=== PATIENT | male | born 1960 | race Caucasian/White ===

== ENCOUNTER → 2016-09-10 | Outpatient (CLI) | payer OTHER ==
[~2016-09-10] MED LIST: FLUC100T41 PO; MORP1INJ45 PO; ZOVI200C24 PO
[2016-09-10 12:57] LABS: HEMATOCRIT 44.8 % (39.0-51.0); MEAN CELL VOLUME 103.9 FL (80.0-100.0); MEAN CORPUSCULAR HGB CONC 33.7 % (32.0-36.0); PLATELET COUNT 222 TH/MM3 (150-450); RED BLOOD COUNT 4.31 MIL/MM3 (4.50-5.90); RED CELL DISTRIBUTION WIDTH 11.4 % (11.6-17.2); REVIEW FLAG FINAL; WHITE BLOOD COUNT 5.1 TH/MM3 (4.0-11.0)
[2016-09-10 13:06] LABS: CHLORIDE 101 MEQ/L (98-107); POTASSIUM 3.7 MEQ/L (3.5-5.1); SODIUM (NA) 139 MEQ/L (136-145)
[2016-09-10 13:10] LABS: ANION GAP 8 MEQ/L (5-15); BICARBONATE 29.7 MEQ/L (21.0-32.0); BLOOD UREA NITROGEN 7 MG/DL (7-18)
[2016-09-10 13:13] LABS: ALT (GPT) 42 U/L (12-78); AST (GOT) 29 U/L (15-37); GLOMERULAR FILTRATION RATE 63 ML/MIN (>89)
[2016-09-10 13:14] LABS: TOTAL BILIRUBIN ADULT 0.8 MG/DL (0.2-1.0)
[2016-09-10 13:16] LABS: ALKALINE PHOSPHATASE 72 U/L (45-117)
[2016-09-12 23:52] LABS: CD 19 PERCENT 18 % (6-29); CD3 ABSOLUTE 1066 (840-3060); CD4/CD8 RATIO 1.5 (0.86-5.00); CD8 ABSOLUTE 418 (180-1170); LYMPHOCYTES, ABSOLUTE 1411 (850-3900)
[2016-09-14 17:51] LABS: HIV 1 PROVIRAL DNA Detected (Not Detected)
== END ==
LOC: PLAB 12:19
PROVIDERS: ATTEND Specialist
DX: B20 Human immunodeficiency virus [HIV] disease (principal); E29.1 Testicular hypofunction; R79.9 Abnormal finding of blood chemistry, unspecified; F51.05 Insomnia due to other mental disorder; F50.00 Anorexia nervosa, unspecified; F31.5 Bipolar disorder, current episode depressed, severe, with psychotic features; Z79.899 Other long term (current) drug therapy; Z20.2 Contact with and (suspected) exposure to infections with a predominantly sexual mode of transmission
CPT/HCPCS: 80053; 84443; 85027; 86355; 86357; 86359; 86360; 87535

== ENCOUNTER → 2016-11-09 | Outpatient (CLI) | payer OTHER ==
[~2016-11-09] MED LIST changes: +ASPI81TA11 PO; +CITA10TA4 PO; +DARU1TAB2 PO; +EMTR1TAB4 PO; +GADOBENATE DIM PF 529 MG/ML 5 ML VIAL (for RAD MRI) IV ONE; +METO50TA11 PO; +MIRTA15 PO; +ROSU1TAB4 PO; +THERTAB53 PO; +VALA1TAB PO; +VENL75CA44 PO
--- NOTE | 2016-11-09 11:15 | RADRPT ---
EXAM DATE/TIME: 11/09/2016 09:05 [facility] COMPARISON: MRI ORBITS W & W/O CONTRAST, March 07, 2014, 14:37. INDICATIONS : Altered mental status. Loss of memory. CONTRAST: 15 cc Multihance (gadobenate) IV MEDICAL HISTORY : Hypertension. SURGICAL HISTORY : None. ENCOUNTER: Subsequent ACUITY: 2 months PAIN SCORE: 0/10 LOCATION: Cranial TECHNIQUE: Multiplanar, multisequence MRI of the brain was performed both prior to and following the administrat ion of paramagnetic contrast. FINDINGS: Ventricular size is appropriate. There is no parenchymal hemorrhage, acute infarction, mass lesion. There are no extraaxial fluid collections appreciated. There are no significant periventricular white matter changes. There is no restricted diffusion. Posterior fossa fourth ventricle is midline. There is no abnormal contrast enhancement. There is minimal artifact across both occipital lobes seen best on series 13, image 9. This is not c ontrast enhancement. CONCLUSION: 1. Negative MRI of the brain. I do not see abnormal contrast enhancement. 2. I do not see evidence for cerebritis or ischemic demyelinization. Alli Adams MD FACR on November 09, 2016 at 10:37 Board Certified Radiologist. This report was verified electronically.
== END ==
LOC: HRAD 08:19
PROVIDERS: ATTEND Specialist
DX: R41.3 Other amnesia (principal); R41.0 Disorientation, unspecified; R41.82 Altered mental status, unspecified
CPT/HCPCS: 70553; A9577

== ENCOUNTER 2016-11-16 06:41 | Day surgery (SDC) | payer OTHER ==
[~2016-11-16] VITALS: Ht 175.3 cm; Wt 77.3 kg
[~2016-11-16 06:41] MED LIST changes: -ASPI81TA11 PO; -CITA10TA4 PO; -DARU1TAB2 PO; -EMTR1TAB4 PO; -GADOBENATE DIM PF 529 MG/ML 5 ML VIAL (for RAD MRI) IV ONE; -METO50TA11 PO; -MIRTA15 PO; -ROSU1TAB4 PO; -THERTAB53 PO; -VALA1TAB PO; -VENL75CA44 PO
[2016-11-16] MEDS ORDERED: EMTR1TAB4 PO (07:08)
[2016-11-16] MEDS ORDERED: ASPI81TA11 PO (07:08)
[2016-11-16] MEDS ORDERED: VENL75CA44 PO (07:08)
[2016-11-16] MEDS ORDERED: CITA10TA4 PO (07:08)
[2016-11-16] MEDS ORDERED: THERTAB53 PO (07:08)
[2016-11-16] MEDS ORDERED: DARU1TAB2 PO (07:08)
[2016-11-16] MEDS ORDERED: METO50TA11 PO (07:08)
[2016-11-16] MEDS ORDERED: MIRTA15 PO (07:08)
[2016-11-16] MEDS ORDERED: ROSU1TAB4 PO (07:08)
[2016-11-16] MEDS ORDERED: VALA1TAB PO (07:08)
[2016-11-16 07:16] VITALS: BP 113/76; PULSE 56; RESP 19; TEMP 97.8; O2SAT 97
[2016-11-16] MEDS ORDERED: SODIUM CHLOR 0.9% 1000 ML INJ 1,000 ML IV ONE (07:30)
[2016-11-16 07:34] LABS: AUTOMATED NEUTROPHIL # 4.2 TH/MM3 (1.8-7.7); BASOPHIL % 0.5 % (0.0-2.0); EOSINOPHIL # 0.1 TH/MM3 (0-0.4); EOSINOPHIL % 1.5 % (0.0-4.0); HEMATOCRIT 44.5 % (39.0-51.0); HEMO FLAGS DIFF FINAL; LYMPH % 27.9 % (9.0-44.0); LYMPHOCYTE # 1.9 TH/MM3 (1.0-4.8); MEAN CORPUSCULAR HEMOGLOBIN 34.3 PG (27.0-34.0); MEAN CORPUSCULAR HGB CONC 34.3 % (32.0-36.0); MONO % 7.3 % (0.0-8.0); NEUT % 62.8 % (16.0-70.0); PLATELET COUNT 171 TH/MM3 (150-450); RED BLOOD COUNT 4.45 MIL/MM3 (4.50-5.90); RED CELL DISTRIBUTION WIDTH 12.9 % (11.6-17.2); WHITE BLOOD COUNT 6.7 TH/MM3 (4.0-11.0)
[2016-11-16 07:44] LABS: APTT (PATIENT) 28.5 SEC (24.3-30.1); INTERNATIONAL NORMALIZED RATIO 0.9 RATIO
[2016-11-16 07:49] LABS: BICARBONATE 25.4 MEQ/L (21.0-32.0); POTASSIUM 4.1 MEQ/L (3.5-5.1)
--- NOTE | 2016-11-16 08:48 | PD.RAD ---
Post Procedure Progress Note Pre Procedure Diagnosis: (1) HIV (human immunodeficiency virus infection) Post Procedure Diagnosis: (1) HIV (human immunodeficiency virus infection) Procedure Date: Nov 16, 2016 Supervising Radiologist: Que Brewer JR Proceduralist/Assist: Jassi Shepard RT(R), RT John(R)(CV) Anesthesia: Local Plan of Activity Patient to Unit: ROPU Patient Condition: Good See PACS Report for procedural detail/treatment Spinal Procedure Lumbar Puncture L3-L4 Fluid Removal (CCs): 9 Fluid Description: Clear Puncture Time: 08:19 Jr. Osman,Que Pérez MD Nov 16, 2016 08:48
[2016-11-16 09:00] VITALS: BP 122/70; PULSE 56; RESP 17; TEMP 98.2; O2SAT 96
--- NOTE | 2016-11-16 09:00 | RADRPT ---
EXAM DATE/TIME: 11/16/2016 08:03 [facility] COMPARISON: No previous studies available for comparison. INDICATIONS : Memory loss. Hx of HIV MEDICAL HISTORY : 1. HIV 2. Anxiety 3. depression SURGICAL HISTORY : 1.lasik ENCOUNTER: Initial ACUITY: 4-6 months PAIN SCORE: 0/10 LUMBAR PUNCTURE TIME: 0819 hours FLUORO TIME: 0.5 minutes IMAGE SERIES: 0 ACCESS LEVEL: L3-4 FLUID: 9 cc of clear CSF was collected and sent to the laboratory for analysis. PROCEDURE : 1. Fluoroscopic guided lumbar puncture. The risks, benefits and alternatives to the procedure were explained and verbal and written consent w as obtained. The site was prepped in sterile fashion. Full sterile technique was used, including ca p, mask, sterile gloves and gown and a large sterile sheet. Hand hygiene and 2% chlorhexidine and/or betadine/alcohol prep was utilized per protocol for cutaneous antisepsis. The skin and subcutaneous tissues were infiltrated with local anesthetic solution. With fluoroscopic guidance the lumbar thecal sac was punctured at the level above. The fluid describ ed above was removed without difficulty. The patient tolerated the procedure well and there were no complications. CONCLUSION: Uncomplicated fluoroscopically guided lumbar puncture. Clear CSF obtained and sent to the lab as requested. Que Brewer Jr., MD on November 16, 2016 at 8:58 Board Certified Radiologist. This report was verified electronically.
[2016-11-16 10:11] LABS: GROSS BLOOD TUBE #1 0 (0); GROSS BLOOD TUBE #2 0 (0); SUPERNATE COLOR TUBE #1 CLEAR (CLEAR); SUPERNATE COLOR TUBE #2 CLEAR (CLEAR); VOLUME TUBE # 1 2.1 ML
[2016-11-16 10:12] LABS: CSF LYMPHOCYTES 100 %; CSF NEUTROPHILS 0 %; GROSS BLOOD TUBE #3 0 (0); GROSS BLOOD TUBE #4 0 (0); SUPERNATE COLOR TUBE #3 CLEAR (CLEAR); SUPERNATE COLOR TUBE #4 CLEAR (CLEAR); WBC TUBE #4 4 /MM3 (0-10)
[2016-11-16 10:30] VITALS: BP 130/72; PULSE 62; RESP 18; TEMP 98; O2SAT 98
[2016-11-17 09:21] LABS: HSV 1,PCR Negative (Negative)
[2016-11-17 09:54] LABS: CMV PCR SPECIMEN SOURCE CSF (())
[2016-11-17 18:04] LABS: LYME IGG IMMUNOBLOT CSF None Detected bands (None Detected); LYME IGM IMMUNOBLOT CSF None Detected bands (None Detected)
[2016-11-18 19:52] LABS: B. BURGDORFERI DNA PCR CSF NOT DETECTED (()); VDRL CSF NON-REACTIVE (())
[2016-11-19 08:41] LABS: CSF CRYPTOCOCCUS AG CONF ND (NOT DETECTD)
[2016-11-19 18:30] LABS: TOXOPLASMA AB IGG <0.90 (()); TOXOPLASMA AB IGM (CSF) <0.80 (())
== END 2016-11-16 10:35 | disposition home or self-care (01) ==
LOC: HROP 06:41 → HRIP 06:42 → HROP 10:35
PROVIDERS: ATTEND Specialist
DX: R41.82 Altered mental status, unspecified (principal); Z21 Asymptomatic human immunodeficiency virus [HIV] infection status; R41.3 Other amnesia
CPT/HCPCS: 62270; 77003; 80048; 82945; 84157; 85025; 85610; 85730; 86403; 86592; 86618; 86777; 86778; 87015; 87070; 87102; 87116; 87205; 87206; 87497; 87529; 87799; 87801; 89051; J7030

== ENCOUNTER 2016-11-18 12:43 | Day surgery (SDC) | payer OTHER ==
[~2016-11-18] VITALS: Ht 175.3 cm; Wt 77.3 kg
[2016-11-18 13:06] VITALS: BP 126/74; PULSE 78; RESP 20; TEMP 98.6; O2SAT 95
[2016-11-18 14:10] VITALS: BP 144/88; PULSE 67; RESP 20; O2SAT 98
--- NOTE | 2016-11-18 14:56 | PD.RAD ---
Radiology Post PICC Prog Note Pre Procedure Diagnosis: (1) HIV (human immunodeficiency virus infection) Post Procedure Diagnosis: (1) HIV (human immunodeficiency virus infection) Procedure: Left PICC line placement Procedure Date: Nov 18, 2016 Supervising Radiologist Que Brewer JR Proceduralist/Assist: Luzma Simmons RT(R)() Device Side: Left Lao: 4 single lumen cm: 48 Catheter: Power PICC Plan of Activity Patient to Unit: ROPU Patient Condition: Good PICC line can be used immediately Jr. Osman,Que Pérez MD Nov 18, 2016 14:56
[2016-11-18] MEDS ORDERED: SODIUM CHLOR 0.9% IV ONE (15:00)
[2016-11-18] MEDS ORDERED: ACYCLOVIR IV ONE (15:00)
[2016-11-18] MEDS ORDERED: SODIUM CHLORIDE 0.9% FLUSH 10 ML FLUSH IVF PRN ×2 (15:00)
[2016-11-18] MEDS ORDERED: PENICILLIN G SODIUM INJ 4,000,000 UNITS in SODIUM CHLORIDE 0.9% INJ 100 ML IV ONE (15:00)
--- NOTE | 2016-11-18 15:13 | RADRPT ---
EXAM DATE/TIME: 11/18/2016 13:37 [facility] COMPARISON: No previous studies available for comparison. INDICATIONS : Patient needs antibiotics for elevated WBC in CSF. MEDICAL HISTORY : 1. HIV 2. anxiety 3. depression SURGICAL HISTORY : 1. lasik surgery 2. LP ENCOUNTER: Initial ACUITY: 3 months PAIN SCORE: 0/10 FLUORO TIME: 0.1 minutes IMAGE SERIES: 1 ACCESS: Left basilic vein DEVICE(S): 1.) 4 Norwegian single lumen 48 cm Xcela Power PICC PROCEDURE : 1. Ultrasound guidance for venous catheterization. 2. Fluoroscopic guidance. 3. Ultrasound & fluoroscopic guided central venous Power PICC line placement. The risks, benefits and alternatives to the procedure were explained and verbal and written consent w as obtained. The site was prepped in sterile fashion. Full sterile technique was used, including ca p, mask, sterile gloves and gown and a large sterile sheet. Hand hygiene and 2% chlorhexidine prep w as utilized per protocol for cutaneous antisepsis with appropriate dry time for site. The skin and s ubcutaneous tissues were infiltrated with local anesthetic solution. Under direct ultrasound guidance, a suitable vein was accessed and a measuring guidewire was introduc ed and positioned in the central venous system. The ultrasound images depicting access guidance were saved and stored to PACS for permanent record. A Power Injectable PICC line was cut to prescribed length and introduced, positioned with tip at the cavoatrial junction level. The line was flushed and secured per protocol. CONCLUSION: 1. Uncomplicated central venous Power PICC line placement. 2. The PICC line can be used immediately. Que Brewer Jr., MD on November 18, 2016 at 15:11 Board Certified Radiologist. This report was verified electronically.
[2016-11-18 15:55] VITALS: BP 90/62; PULSE 99; RESP 20; O2SAT 96
[2016-11-18] MEDS ORDERED: GADODIAMIDE PF 287 MG/ML 5 ML VIAL (for RAD MRI) IV ONE (18:32)
--- NOTE | 2016-11-18 18:45 | RADRPT ---
EXAM DATE/TIME: 11/18/2016 16:57 [facility] COMPARISON: MRI BRAIN W & W/O CONTRAST, November 09, 2016, 9:05. INDICATIONS : Viral encephalopathy. Elevated WBC in CSF. CONTRAST: 15 cc Omniscan (gadodiamide) IV MEDICAL HISTORY : None. SURGICAL HISTORY : Lasik. ENCOUNTER: Subsequent ACUITY: 1 month PAIN SCORE: 0/10 LOCATION: head. TECHNIQUE: Multiplanar, multisequence MRI of the brain was performed both prior to and following the administrat ion of paramagnetic contrast. FINDINGS: CEREBRUM: The ventricles are normal for age. No evidence of midline shift, mass lesion, hemorrhage or acute in farction. No extraaxial fluid collections are seen. The pituitary gland and suprasellar cistern are normal in configuration. WHITE MATTER: No significant signal abnormalities are seen in the white matter. POSTERIOR FOSSA: The cerebellum and brainstem are intact. The 4th ventricle is midline. The cerebellopontine angle is unremarkable. The cerebellar tonsils are normal in position. DIFFUSION IMAGING: No focal areas of restricted diffusion are seen. No evidence of acute infarction. EXTRACRANIAL: The visualized portions of the orbits and paranasal sinuses are unremarkable. POST-CONTRAST: No abnormal areas of parenchymal or dural enhancement. No evidence of blood-brain barrier breakdown. CONCLUSION: Negative brain MRI examination. No areas of edema or enhancement are seen. Ward Cobb MD on November 18, 2016 at 18:41 Board Certified Radiologist. This report was verified electronically.
--- NOTE | 2016-11-18 18:48 | RADRPT ---
EXAM DATE/TIME: 11/18/2016 16:57 [facility] COMPARISON: No previous studies available for comparison. INDICATIONS : Viral encephalopathy. MEDICAL HISTORY : None. SURGICAL HISTORY : Lasik. ENCOUNTER: Subsequent ACUITY: 1 month PAIN SCORE: 0/10 LOCATION: head. Please note a normal MRA of the brain does not entirely exclude the possibility of a small aneurysm, nor the possibility of distal intracranial vessel disease. TECHNIQUE: 3D time of flight MRA was performed. Source images, multiplanar STS MIP, and 3D volume MIP reconstru ctions were reviewed. FINDINGS: The internal carotid are patent bilaterally. The internal carotid arteries bifurcate into anterior an d middle cerebral areas. The right A1 segment is hypoplastic. There is a patent anterior communicatin g artery. The A2 segments are symmetric. The basilar artery is formed from the 2 vertebral arteries. It primarily ends at the left posterior cerebral artery. Much of the flow from the right posterior c erebral artery arises from the right internal carotid artery. This is normal variant anatomy. Signifi cant spasm is not seen. No aneurysm is seen. CONCLUSION: Normal examination. Ward Cobb MD on November 18, 2016 at 18:43 Board Certified Radiologist. This report was verified electronically.
--- NOTE | 2016-11-18 18:52 | RADRPT ---
EXAM DATE/TIME: 11/18/2016 16:57 [facility] COMPARISON: MRI ORBITS W & W/O CONTRAST, March 07, 2014, 14:37. INDICATIONS : Viral encephalopathy. Evevated WBC in CSF. CONTRAST: 15 cc Omniscan (gadodiamide) IV MEDICAL HISTORY : None. SURGICAL HISTORY : Lasik. ENCOUNTER: Subsequent ACUITY: 1 month PAIN SCORE: 0/10 LOCATION: head. TECHNIQUE: Multiplanar, multisequence MRI examination was performed. FINDINGS: PRESEPTAL: The preseptal soft tissues are normal thickness. GLOBES: Normal shape without wall thickening. The lens is grossly intact. EXTRAOCULAR MUSCLES: Symmetric and normal thickness. ORBITAL PEREZ: Intact. The greater wing of the sphenoid is intact. OPTIC NERVES: Normal size. The optic canal is not enlarged. The retroconal fat is normal in appearance. LACRIMAL GLANDS: No evidence of mass. RETROAPICAL REGION: The optic chiasm is grossly intact. The visualized portion of the cavernous sinus and brainstem is i ntact. CONCLUSION: Normal examination. Ward Cobb MD on November 18, 2016 at 18:48 Board Certified Radiologist. This report was verified electronically.
[2016-11-19] MEDS ORDERED: SODIUM CHLORIDE 0.9% FLUSH 10 ML FLUSH IVF SCH (09:00)
== END 2016-11-18 16:25 | disposition home or self-care (01) ==
LOC: HRIP 12:43 → HROP 12:43
PROVIDERS: ATTEND Specialist
DX: D72.829 Elevated white blood cell count, unspecified (principal); B20 Human immunodeficiency virus [HIV] disease; F32.9 Major depressive disorder, single episode, unspecified; F41.9 Anxiety disorder, unspecified
CPT/HCPCS: 36569; 70543; 70544; 70553; 76937; 77001; A9579; C1751; J0133; J1642; J7050

== ENCOUNTER → 2016-11-18 | Outpatient (CLI) | payer OTHER ==
[~2016-11-18] MED LIST changes: +ASPI81TA11 PO; +CITA10TA4 PO; +DARU1TAB2 PO; +EMTR1TAB4 PO; -FLUC100T41 PO; +METO50TA11 PO; +MIRTA15 PO; -MORP1INJ45 PO; +ROSU1TAB4 PO; +THERTAB53 PO; +VALA1TAB PO; +VENL75CA44 PO; -ZOVI200C24 PO
[2016-11-18 13:38] LABS: BLOOD, URINE NEG (NEG); GLUCOSE,URINE NEG (NEG); KETONE, URINE NEG (NEG); NITRITE,URINE NEG (NEG); PH, URINE 6.5 (5.0-8.5); URINE COLOR YELLOW (YELLW/STRAW)
[2016-11-18 13:46] LABS: HEMATOCRIT 44.6 % (39.0-51.0); MEAN CELL VOLUME 99.9 FL (80.0-100.0); MEAN CORPUSCULAR HEMOGLOBIN 35.2 PG (27.0-34.0); MEAN CORPUSCULAR HGB CONC 35.2 % (32.0-36.0); PLATELET COUNT 168 TH/MM3 (150-450); RED BLOOD COUNT 4.46 MIL/MM3 (4.50-5.90); RED CELL DISTRIBUTION WIDTH 13.3 % (11.6-17.2); REVIEW FLAG FINAL; WHITE BLOOD COUNT 6.3 TH/MM3 (4.0-11.0)
[2016-11-18 13:53] LABS: ANION GAP 8 MEQ/L (5-15); AST (GOT) 27 U/L (15-37); BICARBONATE 28.4 MEQ/L (21.0-32.0); BLOOD UREA NITROGEN 15 MG/DL (7-18); CHLORIDE 102 MEQ/L (98-107); GLOMERULAR FILTRATION RATE 52 ML/MIN (>89); POTASSIUM 3.9 MEQ/L (3.5-5.1); SODIUM (NA) 138 MEQ/L (136-145)
[2016-11-18 14:20] LABS: ALKALINE PHOSPHATASE 87 U/L (45-117); ALT (GPT) 48 U/L (12-78); TOTAL BILIRUBIN ADULT 0.5 MG/DL (0.2-1.0)
[2016-11-19 23:53] LABS: CD 19 PERCENT 10 % (6-29); CD3 ABSOLUTE 1672 (840-3060); CD4/CD8 RATIO 1.3 (0.86-5.00); CD8 ABSOLUTE 710 (180-1170); LYMPHOCYTES, ABSOLUTE 2040 (850-3900)
[2016-11-21 23:51] LABS: HIV 1 PROVIRAL DNA Detected (Not Detected)
[2016-11-24 09:59] LABS: BATH SALTS (MDPV) UR NEG (NEG); ECSTASY (MDMA) UR NEG (NEG); GABAPENTIN UR NEG (NEG); HEROIN (6-ACETYLMORPHINE) UR NEG (NEG); HYDROMORPHONE U NEG (NEG); K2 SPICE UR NEG (NEG); OBMETHADONE UR NEG (NEG); PHENCYCLIDINE URINE NEG (NEG)
== END ==
LOC: PLAB 07:52
PROVIDERS: ATTEND Specialist
DX: Z20.2 Contact with and (suspected) exposure to infections with a predominantly sexual mode of transmission (principal); B20 Human immunodeficiency virus [HIV] disease; R63.4 Abnormal weight loss; R41.3 Other amnesia
CPT/HCPCS: 80053; 80307; 81001; 82607; 82746; 84443; 85027; 86355; 86357; 86359; 86360; 86592; 86593; 87535; G0481